=== PATIENT | female | born 1980 | race Two or more races ===

== ENCOUNTER 2016-11-19 01:55 | Emergency (ER) | payer MEDICAID ==
[~2016-11-19] VITALS: Ht 177.8 cm; Wt 56.7 kg
--- NOTE | 2016-11-19 02:25 | NUR ---
To bed 1 a 36 yo female bibself with c/o left leg numbness and bruising for 1.5 weeks, patient denies any injury/trauma to area. Patient is aaox4, ambulatory. Left toes warm to touch, cap refill <3secs. Awaiting for er md melendez.
--- NOTE | 2016-11-19 03:14 | NUR ---
Dr Valladares at bedside for eval.
--- NOTE | 2016-11-19 03:15 | NUR ---
CALLED RADIOLOGY FOR VASCULAR ULTRASOUND
--- NOTE | 2016-11-19 03:20 | NUR ---
lab at bedside for blood draw.
[2016-11-19 03:35] LABS: CALCIUM, SERUM 8.7 mg/dL (8.5-10.1); CREATININE 0.7 mg/dL (0.6-1.3); POTASSIUM 3.9 mmol/L (3.5-5.1)
--- NOTE | 2016-11-19 03:48 | NUR ---
xr tech at bedside.
--- NOTE | 2016-11-19 04:27 | NUR ---
kiersten galvez at bedside.
[2016-11-19 04:53] VITALS: BP 120/68
--- NOTE | 2016-11-19 04:58 | NUR ---
Patient discharged to home in stable condition. Written and verbal after care instructions given. Patient verbalizes understanding of instruction. Patient is ambulatory with a steady gait.
== END 2016-11-19 05:00 | disposition home or self-care (01) ==
LOC: ER 01:58
DX: S80.12XA Contusion of left lower leg, initial encounter (principal); X58.XXXA Exposure to other specified factors, initial encounter; Y93.89 Activity, other specified; Y92.89 Other specified places as the place of occurrence of the external cause; Y99.8 Other external cause status
CPT/HCPCS: 36415; 73590-TC; 73610-TC; 80048-TC; 93971-TC; A4606; Z7610